=== PATIENT | female | born 1960 | race Caucasian/White ===

== ENCOUNTER → 2016-05-17 | Outpatient (CLI) | payer OTHER, BC ==
[~2016-05-17] MED LIST: ALLEGRA ALLERG180 MG PO; ALPRAZOLAM 0.50.5 MG PO; BENTYL 10 MG CA10 MG PO; CIMETIDINE800 MG PO; CORGARD20 M1 PO; DAPSONE25 MG PO; ESGIC CAPSULE1 EACH PO; FLEXERIL PO; HYDROCODON-ACE1 EAC7 PO; HYDROXYCHLOROQ200 M1 PO; IMITREX100 MG PO; K-DUR10 MEQ PO; L-THYROXINE; MAXALT10 MG PO; METOCLOPRAMIDE10 MG; MUCINEX600 MG PO; PROMETHAZINE HC25 M2 PO; RECLAST 55 MG/100 M IV; SINGULAIR 10 MG10 M1 PO; TOPAMAX 100 MG100 MG NG; TRAMADOL 50 MG50 MG PO; VITAMIN D2000 UNIT PO; ZYRTEC 10 MG TA10 MG PO
== END ==
LOC: RAD 14:19
DX: M79.675 Pain in left toe(s) (principal); R05 Cough

== ENCOUNTER → 2017-06-28 | Outpatient (CLI) | payer OTHER, BC | LOC: RAD 10:03 | DX: Z12.31 Encounter for screening mammogram for malignant neoplasm of breast (principal) ==